=== PATIENT | male | born 1970 | race Caucasian/White ===

== ENCOUNTER 2023-12-08 00:15 | Emergency (ER) | payer BC, SELFPAY ==
[2023-12-08 00:33] VITALS: BP 170/92; PULSE 87; RESP 16; TEMP 36.8; O2SAT 99; BMI 32.1
--- NOTE | 2023-12-08 00:38 | DI.CT.S_ITS ---
PROCEDURE: CT FACIAL BONES WO CON INDICATIONS: fall with facial injuries TECHNIQUE: Noncontrast 2.5 mm thick axial images acquired from the mandible through the frontal sinuses, with coronal and sagittal reformatting. For radiation dose reduction, the following was used: automated exposure control, adjustment of mA and/or kV according to patient size. COMPARISON: None. FINDINGS: Image quality: Diagnostic Bones: Fdgx-no-srqyjpym displacement and comminution of the nasal bone fracture. The pterygoid plates are intact. The zygomatic arches and mandible are intact. No displaced fracture of the orbital stewart. Sinuses and mastoids: No significant paranasal sinus opacity. Mild mucosal thickening of the ethmoids. No significant mastoid fluid Soft tissues: Soft tissue swelling in the paranasal tissues. Orbits appear unremarkable. Possible small soft tissue contusion in the supraorbital regions. Brain: Separately dictated IMPRESSION: Nyki-bl-gdzbhmkd displacement and comminution of the nasal bone fracture with surrounding soft tissue swelling. No other acute displaced facial injury identified. Dictated by: Jose Enrique Jimenez M.D. on 12/08/2023 at 1:12 Approved by: Jose Enrique Jimenez M.D. on 12/08/2023 at 1:14
--- NOTE | 2023-12-08 00:38 | DI.CT.S_ITS ---
PROCEDURE: CT HEAD/BRAIN WO CON INDICATIONS: fall with facial injuries TECHNIQUE: Noncontrast 4.5 mm thick angled axial sections acquired from the foramen magnum to the vertex, with coronal and sagittal reformats. For radiation dose reduction, the following was used: automated exposure control, adjustment of mA and/or kV according to patient size. COMPARISON: None. FINDINGS: Image quality: Diagnostic CSF spaces: Basal cisterns are patent. Lateral ventricles are symmetric. Volume: Vascular calcifications. Periventricular white matter disease is commonly seen with chronic microangiopathy. Volume loss is present. These findings are [id number] Brain: No intracranial hemorrhage. Hook-white differentiation is grossly maintained. Craniofacial structures: Separately dictated IMPRESSION: No acute intracranial hemorrhage. Dictated by: Jose Enrique Jimenez M.D. on 12/08/2023 at 0:58 Approved by: Jose Enrique Jimenez M.D. on 12/08/2023 at 1:00
--- NOTE | 2023-12-08 00:38 | DI.CT.S_ITS ---
PROCEDURE: CT CERVICAL SPINE WO CON INDICATIONS: fall with facial injuries TECHNIQUE: Noncontrast 3 mm thick sections acquired from the skull base to the T4 level. Sagittal and coronal reformats were then constructed. For radiation dose reduction, the following was used: automated exposure control, adjustment of mA and/or kV according to patient size. COMPARISON: None. FINDINGS: Image quality: Diagnostic Bones: Mild degenerative changes. There is gas within the C3 and C6 inferior vertebral body endplates, likely related to degenerative disc disease. Vertebral body heights are well maintained. No traumatic subluxation. 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 Soft tissues: No apical pneumothorax. No pathologic prevertebral soft tissue swelling. There are vascular calcifications. IMPRESSION: No displaced fracture or traumatic subluxation. Mild degenerative changes. If there is high concern for further derangement, consider MRI evaluation. Dictated by: Jose Enrique Jimenez M.D. on 12/08/2023 at 1:14 Approved by: Jose Enrique Jimenez M.D. on 12/08/2023 at 1:16
[2023-12-08] MEDS: TET,DIPH,PERTUSS(ACELL),VAC/PF 0.5 ML SYRINGE IM (01:00)
[2023-12-08 03:00] VITALS: BP 145/87; PULSE 68; RESP 19; TEMP 36.8; O2SAT 99
--- NOTE | 2023-12-08 03:23 | ED_ITS ---
HPI - Fall General Chief Complaint: Fall Stated Complaint: Fall, nose gash Time Seen by Provider: 12/08/23 00:46 Source: patient and family Mode of arrival: Ambulatory History of Present Illness HPI Narrative: Otherwise healthy 53-year-old gentleman visiting [facility], stumbled fell forward landing on his midface with glasses in place with a large gouge over the bridge of his nose. No loss of consciousness no other complaints. Pain is adequately controlled. Related Data Allergies Allergy/AdvReac Type Severity Reaction Status Date / Time No Known Drug Allergies Allergy Verified 12/08/23 00:33 Review of Systems Review of Systems Narrative: Pertinent positive and negative findings as per HPI Patient History Social History Smoking Status: Never smoker Smoking Status: Never smoker alcohol intake frequency: 0-2 drinks per day Substance Use Type: does not use Exam Initial Vital Signs Initial Vital Signs: Vital Signs Temperature 98.2 F 12/08/23 00:33 Pulse Rate 87 12/08/23 00:33 Respiratory Rate 16 12/08/23 00:33 Blood Pressure 170/92 H 12/08/23 00:33 Pulse Oximetry 99 12/08/23 00:33 Oxygen Delivery Method Room Air 12/08/23 00:33 General: Healthy appearing, in no acute distress. Able to give a complete and coherent history. Well-nourished well-developed HEENT: Moist mucous membranes, normal sclera with reactive pupils, large defect over the bridge of the nose with a flap like lesion quite a debris underneath, bone flex appreciated. Complex stellar extension on the upper portion of the bridge of the nose. There was no ocular involvement no tenderness over the mid face. Bleeding is controlled Neck: No midline cervical spine tenderness Respiratory: Lungs are clear to auscultation, no wheezing no rales no rhonchi. Full and symmetrical air movement Cardiac: Regular rate and rhythm no murmurs no bruits Neurologic: Grossly neurologically intact with no obvious asymmetries or abnormalities Extremities: No trauma, well perfused Psych: Cooperative, appropriate insight and affect Course Orders Ordered: ED Orders 12/08/23 00:38 CT cervical spine wo con Stat CT facial bones wo con Stat CT head/brain wo con Stat Complete Blood Count AUTO DIFF Stat Comprehensive Metabolic Panel Stat Ethanol (ETOH) Stat Discontinued Medications Diphtheria/Tetanus/Acell Pertussis (Tet,Diph,Pertuss(Acell),Vac/Pf 0.5 Ml Syringe) 0.5 ml IM .ONCE ONE Stop: 12/08/23 00:40 Last Admin: 12/08/23 01:00 Dose: 0.5 ml Documented By: Vital Signs Vital signs: Vital Signs - 8 hr 12/08/23 00:33 12/08/23 03:00 Temperature 98.2 F 98.2 F Pulse Rate 87 68 Respiratory Rate 16 19 Blood Pressure 170/92 H 145/87 H Pulse Oximetry 99 99 Oxygen Delivery Method Room Air Room Air MDM - Fall MDM Narrative Medical decision making narrative: CC: Fall with significant mid face injury Data collected from: patient Social determinants of health that may influence the patients condition: Vacationing on [facility] Differential considered: Simple laceration, complex laceration, facial fractures, cervical spine injury Exam documented above, pertinent findings include: Alert and appropriate. Large laceration over the bridge of the nose moderate defect, bone involved, bleeding is controlled Imaging studies independently reviewed: CT scan of the head is unremarkable CT scan of the cervical spine is reassuring CT scan of facial bones Bones: [id number]-wm-[id number] displacement and comminution of the nasal bone fracture. The pterygoid plates are intact. The zygomatic arches and mandible are intact.No displaced fracture of the orbital stewart. Consultations: Discussed with Dr. Bishop, ear nose and throat physician on- call this evening. Reviewed the complexity of the wound and together we decided that having him do the primary repair would best serve the patient. To that end, he will have the patient come over to his surgery center at 7:30 a.m. this morning and he will plan on repair 1st thing this morning. He requested antibiotic ointment and gauze to cover the wound for the time being. Treatments: Areas infiltrated with 4 cc of 1% lidocaine and more thoroughly evaluated. There are bony flex throughout the wound. The large triangular flap tunnels steeply down the nose. Still quite a bit of dirt and debris in the wound. Once cleaned, I paused to talk with ear nose and throat surgeons. I think this is going to take more plastics an undermining and may well benefit from the nasal fracture repair simultaneously. We will look for recommendations on type of repair that will be most beneficial to support secondary and defi nitive treatment Re-evaluations: Findings and recommendations for having plastic surgery do the primary care reviewed with the patient and his they both understand. Discussion: 53-year-old gentleman with mechanical fall laceration with bone fractures open and large mid bridge defect. No orbital fractures, aside from the nasal bone fractures no other midface fractures no intracranial hemorrhage no cervical spine injury and no other trauma appreciated. Patient was given a tetanus shot and a dose of Keflex in the emergency department. He is declined additional pain medication. He has given a prescription for Keflex to fill incomplete unless directed otherwise by the ear nose and throat surgeon. Instructions on how to get to the surgery center are reviewed with the patient and his , questions are answered I did recommend that he refrain from eating and drinking until after his wound had been appropriately repaired. He is discharged home with instructions to report to the surgery center by 730 this morning. Discharge Plan Departure Patient Disposition: Home Clinical Impression: Fall Qualifiers: Encounter type: initial encounter Qualified Code(s): W19.XXXA - Unspecified fall, initial encounter Fracture, nasal bone, open Qualifiers: Encounter type: initial encounter Qualified Code(s): S02.2XXB - Fracture of nasal bones, initial encounter for open fracture Open nasal wound Qualifiers: Encounter type: initial encounter Open wound type: laceration Foreign body presence: without foreign body Qualified Code(s): S01.21XA - Laceration without foreign body of nose, initial encounter Activity Restrictions/Additional Instructions: Thank you for coming in today. The CT scan of your brain and your cervical spine was very reassuring. The CT scan of your facial bones shows nasal bone fractures but no fractures around the eyes or the cheek bones. As I anesthetized and cleaned the wound, became clear that this was a much larger wound with the open nasal fracture involved. I discussed appropriate care with our ear nose and throat physician who is on-call, Dr. Bishop. We both agree that given the complexity of the wound and likely plastic surgery techniques that are going to be appropriate that having this done by plastic surgeon is going to be more appropriate than primary repair in the ER with revisions to follow up. In the emergency room you were given a tetanus shot and 1st dose of Keflex. Unless directed otherwise by Dr. Bishop, please fill the prescription for Keflex and complete all 7 days. You need to go to the [facility] [place] [place]. The [place] is [address] [place] [address] The ear nose and throat suite is on the 2nd floor. You are looking for Dr. Bishop, He is expecting to see you around 730 this morning If you have any issues or additional concerns please feel free to return to the [facility] as needed Stand Alone Forms: Patient Portal/API
[2023-12-08] MEDS: cephALEXin 250 MG CAPSULE 500 MG PO (04:13)
[2023-12-08 04:19] VITALS: BP 164/68; PULSE 88; RESP 16; TEMP 37.4; O2SAT 97
[2023-12-08] MEDS: BACITRACIN OINT 0.9 GM PCKT 1 APPLIC TOP (04:26)
[2023-12-08] MEDS: ACETAMINOPHEN 325 MG TABLET 975 MG PO (04:26)
[2023-12-08 04:40] VITALS: BP 132/78; PULSE 75; RESP 18; TEMP 36.9; O2SAT 95
== END 2023-12-08 04:41 | disposition home or self-care (01) ==
PROVIDERS: Emergency Provider Emergency Medicine
DX: S02.2XXA Fracture of nasal bones, initial encounter for closed fracture (principal); S01.21XA Laceration without foreign body of nose, initial encounter; W18.30XA Fall on same level, unspecified, initial encounter; Z23 Encounter for immunization
CPT/HCPCS: 70450; 70486; 72125; 90471; 99283; 99284; 90715